=== PATIENT | male | born 1940 | race Caucasian/White ===

== ENCOUNTER 2016-05-12 07:50 | Day surgery (SDC) | payer MEDICARE, MEDICAID ==
[~2016-05-12 07:50] MED LIST: ALDACTONE25 M1 PO; CELEXA20 M2 PO; D-MANNOSE PO; ENULOSE10 GM/151 PO; FLOMAX0.4 M1 PO; LANTUS100 UNITS/ SC; LASIX20 M1 PO; MEPILEX TP; MULTIVITAMINS1 EAC6 PO; NEURONTIN300 M1 PO; POTASSIUM CHLO20 ME3 PO; PRILOSEC OTC20 M1 PO; SENNA-S TABLET1 EAC3 PO; VITAMIN D1000 UNI3 PO; XALATAN2.5 M1 EACH EYE
[2016-05-12 09:40] LABS: INR 1.3 INR (0.9-1.1); PROTHROMBIN TIME 14.8 SECONDS (9.0-13.6)
== END 2016-05-12 13:40 ==
LOC: US 07:50 → SHSB 08:30
PROVIDERS: Radiology Diagnostic Radiology
PROC: 0W9G3ZZ Drainage of Peritoneal Cavity, Percutaneous Approach (ICD-10-PCS; principal; 2016-05-12)
DX: R18.8 Other ascites (principal); K74.60 Unspecified cirrhosis of liver; Z79.899 Other long term (current) drug therapy
CPT/HCPCS: J7030